=== PATIENT | female | born 2005 ===

== ENCOUNTER 2024-04-19 19:21 | Outpatient (REF) | payer SELFPAY ==
[2024-04-20 06:25] LABS: CT PCR NOT DETECTED (Not Detect.); NG PCR NOT DETECTED (Not Detect.)
== END 2024-04-19 19:22 | disposition home or self-care (01) ==
LOC: HO.HHCLNP 19:21
PROVIDERS: Visit Provider Advanced Practice Midwife
DX: Z11.3 Encounter for screening for infections with a predominantly sexual mode of transmission (principal)
CPT/HCPCS: 87491; 87591